=== PATIENT | male | born 2000 | race Caucasian/White ===

== ENCOUNTER 2022-04-10 20:14 | Inpatient (IN) | payer BC ==
[2022-04-10 21:25] LABS: Amphetamine Screen,Urine Not Detected (NotDetected); Barbiturate Screen,Urine Not Detected (NotDetected); Benzodiazepines Screen,Urine Not Detected (NotDetected); Cocaine Screen,Urine Not Detected (NotDetected); Methadone Screen, Urine Not Detected (NotDetected); Opiate Screen,Urine Not Detected (NotDetected); Oxycodone Screen, Urine Not Detected (NotDetected); Phencyclidine Screen,Urine Not Detected (NotDetected); Tricyclic Antidepressant,Urine Not Detected (NotDetected); Urn Cannabinoid Scrn Not Detected (NotDetected)
--- NOTE | 2022-04-10 21:32 | ED ---
Psych HPI - General Chief Complaint: Psychiatric Symptoms Stated Complaint: Mental Health Time Seen by Provider: 04/10/22 21:23 Source: patient, RN notes reviewed, old records reviewed Mode of arrival: ambulatory - History of Present Illness Initial Comments: This is a 21-year-old male with history of depression and psychiatric illness and depression. Patient admits to wanting to kill himself. MD Complaint: suicidal ideation, feels depressed -: unknown Associated Psychiatric Symptoms: depression, suicidal ideation History of same: Yes Quality: constant, getting worse Improves With: none Worsens With: none Context: significant life stressor Associated Symptoms: denies other symptoms Treatments Prior to Arrival: placed on mental health hold If Self Harm: has plan, intentional overdose - Related Data Home Medications Medication Instructions Recorded Confirmed No Known Home Medications 04/10/22 04/10/22 Allergies Allergy/AdvReac Type Severity Reaction Status Date / Time No Known Allergies Allergy Verified 04/10/22 22:20 Review of Systems ROS Statement: Those systems with pertinent positive or pertinent negative responses have been documented in the HPI. ROS Other: All systems not noted in ROS Statement are negative. Past Medical History Past Medical History: No Reported History Additional Past Medical History / Comment(s): wisdom teeth History of Any Multi-Drug Resistant Organisms: None Reported Past Surgical History: No Surgical Hx Reported Past Psychological History: ADD/ADHD Smoking Status: Never smoker Past Alcohol Use History: None Reported Past Drug Use History: None Reported General Exam General appearance: alert, in no apparent distress, anxious Head exam: Present: atraumatic, normocephalic, normal inspection Eye exam: Present: normal appearance, PERRL, EOMI. Absent: scleral icterus, conjunctival injection, periorbital swelling ENT exam: Present: normal exam, mucous membranes moist Neck exam: Present: normal inspection. Absent: tenderness, meningismus, lymphadenopathy Respiratory exam: Present: normal lung sounds bilaterally. Absent: respiratory distress, wheezes, rales, rhonchi, stridor Cardiovascular Exam: Present: regular rate, normal rhythm, normal heart sounds. Absent: systolic murmur, diastolic murmur, rubs, gallop, clicks GI/Abdominal exam: Present: soft, normal bowel sounds. Absent: distended, tenderness, guarding, rebound, rigid Extremities exam: Present: normal inspection, full ROM, normal capillary refill. Absent: tenderness, pedal edema, joint swelling, calf tenderness Back exam: Present: normal inspection Neurological exam: Present: alert, oriented X3, CN II-XII intact Psychiatric exam: Present: normal affect, normal mood Skin exam: Present: warm, dry, intact, normal color. Absent: rash Course Vital Signs 04/10/22 20:24 Temperature 98.2 F Pulse Rate 102 H Respiratory 22 Rate Blood Pressure 120/79 O2 Sat by Pulse 99 Oximetry - Reevaluation(s) Reevaluation #1: 04/10/22 21:32 medical record is reviewed Reevaluation #2: 04/10/22 21:32 medically clear for psych Medical Decision Making - Medical Decision Making 21 male seen and evaluated by psychiatry will admit for psychiatric evaluation and treatment - Lab Data Lab Results 04/10/22 Range/Units 20:42 Urine Opiates Screen Not Detected (NotDetected) Ur Oxycodone Screen Not Detected (NotDetected) Urine Methadone Screen Not Detected (NotDetected) Ur Propoxyphene Screen Not Detected (NotDetected) Ur Barbiturates Screen Not Detected (NotDetected) U Tricyclic Antidepress Not Detected (NotDetected) Ur Phencyclidine Scrn Not Detected (NotDetected) Ur Amphetamines Screen Not Detected (NotDetected) U Methamphetamines Scrn Not Detected (NotDetected) U Benzodiazepines Scrn Not Detected (NotDetected) Urine Cocaine Screen Not Detected (NotDetected) U Marijuana (THC) Screen Not Detected (NotDetected) Disposition Clinical Impression: Depression, Suicidal ideation Disposition: TRANSFER TO PSYCH HOSP/UNIT Condition: Fair Is patient prescribed a controlled substance at d/c from ED?: No Referrals: Damon Spaulding MD [Primary Care Provider] - 1-2 days
[2022-04-11] MEDS ORDERED: ACETAMINOPHEN TAB 325 MG TAB PO PRN (06:22)
[2022-04-11] MEDS ORDERED: MAG HYDROX/AL HYDROX/SIMETH 30 ML CUP PO PRN (06:22)
[2022-04-11] MEDS ORDERED: MAGNESIUM HYDROXIDE 2,400 MG/10 ML CUP PO PRN (06:22)
[2022-04-11] MEDS ORDERED: HALOPERIDOL LACTATE 5 MG/ML 1 ML VIAL IM PRN (06:23)
[2022-04-11] MEDS ORDERED: LORazepam 1 MG TAB PO PRN ×2 (06:23→10:36)
[2022-04-11] MEDS ORDERED: LORazepam 2 MG/ML INJ IM PRN (06:27)
[2022-04-11] MEDS ORDERED: haloperidoL 5 MG TAB PO PRN (06:28)
[2022-04-11 07:42] LABS: Basophils % (A) 1 %; Eosinophils # (A) 0.2 k/uL (0-0.7); Eosinophils % (A) 3 %; HCT 47.5 % (39.0-53.0); HGB 16.1 gm/dL (13.0-17.5); Lymphocytes # (A) 1.5 k/uL (1.0-4.8); Lymphocytes % (A) 31 %; MCH 31.7 pg (25.0-35.0); MCV 93.2 fL (80.0-100.0); Mean Platelet Volume 7.6; Monocytes # (A) 0.3 k/uL (0-1.0); Monocytes % (A) 6 %; Neutrophils # (A) 2.8 k/uL (1.3-7.7); Neutrophils % (A) 57 %; Platelet Count 234 k/uL (150-450); RDW 12.6 % (11.5-15.5); WBC 4.8 k/uL (4.0-11.0)
[2022-04-11 08:03] LABS: ALT 15 U/L (4-49); AST 40 U/L (17-59); African American GFR (CKD) >90 (>60 ml/min/1.73 sqM); Albumin 5.1 g/dL (3.5-5.0); Alkaline Phosphatase 54 U/L (38-126); Anion Gap 10 mmol/L; Blood Urea Nitrogen 15 mg/dL (9-20); Calcium 9.7 mg/dL (8.4-10.2); Carbon Dioxide 28 mmol/L (22-30); Chloride 102 mmol/L (98-107); Glucose 94 mg/dL (74-99); Non-African American GFR(CKD) >90 (>60 ml/min/1.73 sqM); Potassium 4.5 mmol/L (3.5-5.1); Sodium 140 mmol/L (137-145); Total Bilirubin 0.9 mg/dL (0.2-1.3); Total Protein 8.3 g/dL (6.3-8.2)
--- NOTE | 2022-04-11 11:07 | P.HP ---
Psychiatric H&P - . H&P Date: 04/11/22 History & Physical: Allergies Allergy/AdvReac Type Severity Reaction Status Date / Time No Known Allergies Allergy Verified 04/10/22 22:20 Vital Signs Temp 97.4 F L 04/11/22 06:30 Pulse 89 04/11/22 06:30 Resp 18 04/11/22 06:30 BP 126/69 04/11/22 06:30 Pulse Ox 96 04/11/22 06:30 FiO2 Intake & Output 04/10/22 04/11/22 04/11/22 18:59 06:59 18:59 Weight 65.9 kg Laboratory Last Values WBC 4.8 k/uL (4.0-11.0) 04/11/22 07:10 RBC 5.10 m/uL (4.30-5.90) 04/11/22 07:10 Hgb 16.1 gm/dL (13.0-17.5) 04/11/22 07:10 Hct 47.5 % (39.0-53.0) 04/11/22 07:10 MCV 93.2 fL (80.0-100.0) 04/11/22 07:10 MCH 31.7 pg (25.0-35.0) 04/11/22 07:10 MCHC 34.0 g/dL (31.0-37.0) 04/11/22 07:10 RDW 12.6 % (11.5-15.5) 04/11/22 07:10 Plt Count 234 k/uL (150-450) 04/11/22 07:10 MPV 7.6 04/11/22 07:10 Neutrophils % 57 % 04/11/22 07:10 Lymphocytes % 31 % 04/11/22 07:10 Monocytes % 6 % 04/11/22 07:10 Eosinophils % 3 % 04/11/22 07:10 Basophils % 1 % 04/11/22 07:10 Neutrophils # 2.8 k/uL (1.3-7.7) 04/11/22 07:10 Lymphocytes # 1.5 k/uL (1.0-4.8) 04/11/22 07:10 Monocytes # 0.3 k/uL (0-1.0) 04/11/22 07:10 Eosinophils # 0.2 k/uL (0-0.7) 04/11/22 07:10 Basophils # 0.0 k/uL (0-0.2) 04/11/22 07:10 Sodium 140 mmol/L (137-145) 04/11/22 07:10 Potassium 4.5 mmol/L (3.5-5.1) 04/11/22 07:10 Chloride 102 mmol/L (98-107) 04/11/22 07:10 Carbon Dioxide 28 mmol/L (22-30) 04/11/22 07:10 Anion Gap 10 mmol/L 04/11/22 07:10 BUN 15 mg/dL (9-20) 04/11/22 07:10 Creatinine 0.94 mg/dL (0.66-1.25) 04/11/22 07:10 Est GFR (CKD-EPI)AfAm >90 (>60 ml/min/1.73 sqM) 04/11/22 07:10 Est GFR (CKD-EPI)NonAf >90 (>60 ml/min/1.73 sqM) 04/11/22 07:10 Glucose 94 mg/dL (74-99) 04/11/22 07:10 Calcium 9.7 mg/dL (8.4-10.2) 04/11/22 07:10 Total Bilirubin 0.9 mg/dL (0.2-1.3) 04/11/22 07:10 AST 40 U/L (17-59) 04/11/22 07:10 ALT 15 U/L (4-49) 04/11/22 07:10 Alkaline Phosphatase 54 U/L (38-126) 04/11/22 07:10 Total Protein 8.3 g/dL (6.3-8.2) H 04/11/22 07:10 Albumin 5.1 g/dL (3.5-5.0) H 04/11/22 07:10 TSH 1.990 mIU/L (0.465-4.680) 04/11/22 07:10 Urine Opiates Screen Not Detected (NotDetected) 04/10/22 20:42 Ur Oxycodone Screen Not Detected (NotDetected) 04/10/22 20:42 Urine Methadone Screen Not Detected (NotDetected) 04/10/22 20:42 Ur Propoxyphene Screen Not Detected (NotDetected) 04/10/22 20:42 Ur Barbiturates Screen Not Detected (NotDetected) 04/10/22 20:42 U Tricyclic Antidepress Not Detected (NotDetected) 04/10/22 20:42 Ur Phencyclidine Scrn Not Detected (NotDetected) 04/10/22 20:42 Ur Amphetamines Screen Not Detected (NotDetected) 04/10/22 20:42 U Methamphetamines Scrn Not Detected (NotDetected) 04/10/22 20:42 U Benzodiazepines Scrn Not Detected (NotDetected) 04/10/22 20:42 Urine Cocaine Screen Not Detected (NotDetected) 04/10/22 20:42 U Marijuana (THC) Screen Not Detected (NotDetected) 04/10/22 20:42 Coronavirus (PCR) Not Detected (Not Detectd) 04/11/22 04:23 04/11/22 10:41 IDENTIFYING DATA: Patient is a 21-year-old male who currently lives with his parents in a house is single and unmarried. He currently works in a [employer] HPI: Patient presented to the hospital yesterday complaining of depression and suicidal ideation. Patient was admitted voluntarily to mental health unit and seen this morning. Patient was fairly calm and directable during conversation was rambling at times. He did have a anxious affect. He states that he is a "anxious person" and states that he has been "over thinking". He claims that it is especially related to his relationship with his girlfriend. He states that he has been having racing and negative thoughts about their relationship and their interaction together. He states that he has been feeling depressed for the past 2 weeks and has been having trouble functioning. He also describes hopelessness and anhedonia. He states that he has anxiety has been increasing over the past several weeks. He claims that he has had suicidal ideations in the past however it has become more intense and had a plan to possibly kill himself with carbon monoxide in his car. He states that instead he called a suicide hotline and went to the hospital. He states that he is having significant relationship stressors. He states that he is oversleeping and has a fair appetite. Patient denies any suicidal or homicidal ideations intent or plan. At this time patient denies any auditory or visual hallucinations. He admits to using no recreational drugs or cigarettes. PAST PSYCHIATRIC HISTORY: Patient states that he has a history of anxiety. Patient denies being on any psychiatric medications. Patient denies any previous psychiatric hospitalizations. Patient denies any psychiatric outpatient follow- up. He claims that he is to follow-up with [facility] in the past however has not been on medications. Patient denies any history of suicide attempts in the past. PMH:denies ALLERGIES: as per EMR CHEMICAL DEPENDENCY HISTORY: as per HPI FAMILY PSYCHIATRIC/SUBSTANCE USE HISTORY: denies SOCIAL HISTORY: Patient was born and raised in [facility]. He states that he completed high school and is in his second year of college at [employer]. 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 He denies any legal history. He currently lives with his parents in a house is single and unmarried. MENTAL STATUS EXAM: General Appearance: Patient appears to be tall, thin, stated age is alert, directable, and attempts to cooperate. Patient appears to have poor hygiene and grooming. Behavior: Patient is seated without any agitated behavior. Anxious and rambles Speech: Patient's speech is fluent and nonpressured. Tangential. Mood/Affect: Patient reports their mood is depressed and anxious, affect is congruent and constricted. Suicidality/Homicidality: Patient denies having any homicidal ideation intent or plan. Denies any suicidal ideations intent or plan Perceptions: Patient denies any visual hallucinations and denies any auditory hallucinations Though content/process: There is no evidence of any delusional thought content. Rambles. Tangential. Memory and concentration: AOX3, grossly intact for the purposes of this session. Can spell "WORLD" backwards Judgment and insight: Fair STRENGTHS/WEAKNESSES: strength is that patient is resilient. Weakness is that patient has poor judgment and is impulsive INTELLECT: average IMPRESSIONS: Depressive disorder unspecified Generalized anxiety disorder PLAN: -Patient is admitted under voluntary status to MHU for stabilization of psychiatric symptoms and safety. Patient has signed adult voluntary form and medication consent and is placed in patient's chart. -Medications : Will start patient on Zoloft 50 mg daily for mood/anxiety, melatonin 3 mg daily at bedtime for sleep -Ativan and Haldol PRN for agitation/aggression -Patient was informed of the risks, benefits and side effects of the medication and patient verbally consented to taking the medications. Patient signed med consent form and was placed in chart. -Internal Medicine consult to perform medical evaluation and physical. -NRT - not needed as patient does not smoke -SW on board for discharge planning. Encourage patient to participate in groups to work on coping skills. 04/11/22 11:02
[2022-04-11] MEDS: SERTRALINE 50 MG TAB PO SCH (11:18)
--- NOTE | 2022-04-11 12:30 | P.MDCNMH ---
History of Present Illness H&P Date: 04/11/22 HISTORY OF PRESENT ILLNESS This is a 21-year-old male patient of Dr. Spaulding with no significant past medical history. He has not been on any mediations and no previous psychiatric evaluation. He states that he has had suicidal ideation and thought he needed professional help. He talked to hi mother and made decision to come into the hospital for evaluation. He also states that he has had periods where he had suicidal ideation in the past but has never acted on it. He does relate that he has had some increased anxiety regarding her relationship with girlfriend. Patient was found to be afebrile, heart rate 102, blood pressure 120/79, pulse ox 99% on room air. CBC was unremarkable. Electrolytes, renal function and liver function tests all within normal limits. Albumin 5.1. TSH 1.990. Urine drug screen was negative. Coronavirus PCR not detected. Patient is seen today on the mental health unit. REVIEW OF SYSTEMS Constitutional: No fever, no chills, no night sweats. No weight change. No weakness, fatigue or lethargy. No daytime sleepiness. EENT: No headache. No blurred vision or double vision, no loss of vision. No loss of Hearing, no ringing in the ears, no dizziness. No nasal drainage or congestion. No epistaxis. No sore throat. Lungs: No shortness of breath, cough, no sputum production. No wheezing. Cardiovascular: No chest pain, no lower extremity edema. No palpitations. No paroxysmal nocturnal dyspnea. No orthopnea. No lightheadedness or dizziness. No syncopal episodes. Abdominal: No abdominal pain. No nausea, vomiting. No diarrhea. No constipation. No bloody or tarry stools. No loss of appetite. Genitourinary: No dysuria, increased frequency, urgency. No urinary retention. Musculoskeletal: No myalgias. No muscle weakness, no gait dysfunction, no frequent falls. No back pain. No neck pain. Integumentary: No wounds, no lesions. No rash or pruritus. No unusual bruising. No change in hair or nails. Neurologic: No aphasia. No facial droop. No change in mentation. No head injury. No headache. No paralysis. No paresthesia. Psychiatric: Reports depression with suicidal ideation. Reports anxiety. No mood swings. Endocrine: No abnormal blood sugars. No weight change. No excessive sweating or thirst. No cold intolerance. SOCIAL HISTORY Patient is a nonsmoker, no alchol use, no marijuana or illicit drug use. 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 Father is alive with history of bipolar disorder and depression. He does not have any siblings and no children. PHYSICAL EXAMINATION Gen: This is his a 21-year-old male patient. He is ambulating on the mental health unit and appears to be in no acute distress. HEENT: Head is atraumatic, normocephalic. Pupils equal, round. Sclerae is anicteric. NECK: Supple. No JVD. No lymphadenopathy. No thyromegaly. LUNGS: Clear to auscultation. No wheezes or rhonchi. No intercostal retractions. HEART: Regular rate and rhythm. No murmur. ABDOMEN: Soft. Bowel sounds are present. No masses. No tenderness. EXTREMITIES: No pedal edema. No calf tenderness. NEUROLOGICAL: Patient is awake, alert and oriented x3. Cranial nerves 2 through 12 are grossly intact. ASSESSMENT AND PLAN 1. Depression with suicidal ideation. Patient admitted to the MHU. Continue plan per psychiatry. 2. Generalized anxiety disorder. DISCHARGE PLAN home. Impression and plan of care have been directed as dictated by the signing p haydensicigely. Katelynn Payton nurse practitioner acting as scribe for signing physician. Past Medical History Past Medical History: No Reported History Additional Past Medical History / Comment(s): wisdom teeth History of Any Multi-Drug Resistant Organisms: None Reported Past Surgical History: No Surgical Hx Reported Past Psychological History: ADD/ADHD Smoking Status: Never smoker Past Alcohol Use History: None Reported Past Drug Use History: None Reported Medications and Allergies Home Medications Medication Instructions Recorded Confirmed Type No Known Home Medications 04/10/22 04/10/22 History Allergies Allergy/AdvReac Type Severity Reaction Status Date / Time No Known Allergies Allergy Verified 04/10/22 22:20 Physical Exam Vitals: Vital Signs Temp Pulse Pulse Resp BP BP Pulse Ox 04/11/22 06:30 97.4 F L 89 18 126/69 96 04/11/22 06:23 96 96/69 98 04/10/22 20:24 98.2 F 102 H 22 120/79 99 Intake and Output 04/10/22 04/11/22 04/11/22 22:59 06:59 14:59 Other: Weight 68.039 kg 65.9 kg Cranial Nerve Examination - Cranial Nerves Cranial Nerve I- Olfactory: Intact Cranial Nerve II- Optic: Intact Cranial Nerve III- Oculomotor: Intact Cranial Nerve IV- Trochlear: Intact Cranial Nerve V- Trigeminal: Intact Cranial Nerve - Abducens: Intact Cranial Nerve VII- Facial: Intact Cranial Nerve VIII- Auditory: Intact Cranial Nerve IX- Glossopharyngeal: Intact Cranial Nerve X- Vagus: Intact Cranial Nerve XI- Accessory: Intact Cranial Nerve XII- Hypoglossal: Intact Results CBC & Chem 7: 04/11/22 07:10 04/11/22 07:10 Labs: Abnormal Lab Results - Last 24 Hours (Table) 04/11/22 Range/Units 07:10 Total Protein 8.3 H (6.3-8.2) g/dL Albumin 5.1 H (3.5-5.0) g/dL
[2022-04-11] MEDS: MELATONIN 3 MG TABLET PO SCH (20:48)
[2022-04-12] MEDS: SERTRALINE 50 MG TAB PO SCH (09:04)
--- NOTE | 2022-04-12 11:09 | P.PN ---
Progress Note - Text Progress Note Date: 04/12/22 Interval History: Patient was seen wandering the hallways and was directable and agreeable to nora wright with repairer typewriter in the office. Patient continues to be fairly polite and directable during conversation. He rambles at times however states that he is doing overall much better on the medications. He states that his anxiety is gradually improving however does find himself "having racing thoughts still" at times during the day. He states that he is trying to work on different coping skills" groups. He states that he spoke to both his girlfriend and his parents over the phone yesterday which went well. He claims that his parents will come to visit him today for visiting hours. He was asking about potential discharge tomorrow. He claims that his depression is improving. He claims that he is able to sleep throughout the night. At this time patient denies any suicidal or homical ideations, intent or plan. Patient denies any auditory, visual hallucinations and denies any paranoia or delusions. Patient denies any side effects from the medications and has been compliant with meds. Mental Status Exam: General Appearance: Patient appears to be tall, thin, stated age is alert, directable, and attempts to cooperate. Patient appears to have improving hygiene and grooming. Behavior: Patient is seated without any agitated behavior. rambles Speech: Patient's speech is fluent and nonpressured. Mood/Affect: Patient reports their mood is depressed and anxious, affect is congruent and constricted. Suicidality/Homicidality: Patient denies having any homicidal ideation intent or plan. Denies any suicidal ideations intent or plan Perceptions: Patient denies any visual hallucinations and denies any auditory hallucinations Though content/process: There is no evidence of any delusional thought content. Rambles. Improving Memory and concentration: AOX3, grossly intact for the purposes of this session Judgment and insight: Fair IMPRESSIONS: Depressive disorder unspecified Generalized anxiety disorder Plan: -Patient continues to meet criteria for inpatient psychiatric admission for symptom stabilization and safety. Patient has signed adult voluntary form and medication consent and was placed in patient's chart. -Medications: Increase Zoloft to 75 mg daily for mood/anxiety, melatonin 3 mg daily at bedtime for sleep. -When necessary Ativan and Haldol for agitation/aggression. -NRT - not needed as patient does not smoke -SW on board for discharge planning. Encouraged the patient to participate in milieu. likely discharge back home tomorrow.
[2022-04-12] MEDS: MELATONIN 3 MG TABLET PO SCH (20:35)
[2022-04-13 06:37] VITALS: BP 104/53; PULSE 53; RESP 16; TEMP 97.6
[2022-04-13] MEDS ORDERED: SERTRALINE 25 MG TAB PO SCH (09:00)
--- NOTE | 2022-04-13 11:08 | P.DS ---
Providers Date of admission: 04/11/22 06:19 Expected date of discharge: 04/13/22 Attending physician: Primo Jules MD Consults: 04/11/22 06:22 Consult Physician Routine Consulting Provider: Damon Spaulding Reason/Comments: H&P for mental health admission Do you want consulting provider notified?: Yes, Notify in am Primary care physician: Damon Spaulding - Discharge Diagnosis(es) (1) Depressive disorder Current Visit: Yes Status: Acute Priority: High (2) Generalized anxiety disorder Current Visit: Yes Status: Acute Priority: High Hospital Course: Admission HPI: Admission note was completed by web content writer "Patient is a 21-year-old male who currently lives with his parents in a house is single and unmarried. He currently works in a warehouse. Patient presented to the hospital yesterday complaining of depression and suicidal ideation. Patient was admitted voluntarily to mental health unit and seen this morning. Patient was fairly calm and directable during conversation was rambling at times. He did have a anxious affect. He states that he is a "anxious person" and states that he has been "over thinking". He claims that it is especially related to his relationship with his girlfriend. He states that he has been having racing and negative thoughts about their relationship and their interaction together. He states that he has been feeling depressed for the past 2 weeks and has been having trouble functioning. He also describes hopelessness and anhedonia. He states that he has anxiety has been increasing over the past several weeks. He claims that he has had suicidal ideations in the past however it has become more intense and had a plan to possibly kill himself with carbon monoxide in his car. He states that instead he called a suicide hotline and went to the hospital. He states that he is having significant relationship stressors. He states that he is oversleeping and has a fair appetite. Patient denies any suicidal or homicidal ideations intent or plan. At this time patient denies any auditory or visual hallucinations. He admits to using no recreational drugs or cigarettes" Hospital course: Upon admission to the unit patient was directable and agreeable to commence treatment and signed adult voluntary form. Patient got along well with other patients on the unit and followed unit protocol. Patient was compliant with the medications and denied any side effects throughout hospital course. Patient was started on Zoloft increased her dose to 75 mg daily for mood/anxiety, melatonin 3 mg daily at bedtime for sleep.. Patient spoke of his stressors and engaged in therapy both group and individual. Patient was also seen by medical team for history and physical exam. Throughout the course of the hospitalization patient gradually improved with regards to mood, anxiety, sleep and became more future oriented with improved insight and judgment. On the day of discharge patient denied any suicidal or homicidal ideations intent or plan denied any auditory or visual hallucinations. Patient endorsed wanting to live for his health and family. The patient denied any access to guns or weapons. Patient denied any paranoia and did not endorse any delusions. Patient does not have a significant history of substance abuse however was counseled on abstaining from all substances including alcohol and marijuana. Patient was also counseled on the medications and need for regular compliance and was encouraged to follow-up with their outpatient appointment for mental health and also for primary care. Prior to discharge a family meeting will be arranged by social media job [employer] to answer any questions and ensure safety upon discharge. Mental status exam: General Appearance: Patient appears to be thin, stated age is alert, pleasant, and cooperative. Patient is in no acute distress and has improved hygiene and grooming Behavior: Patient is calmly seated without any agitated behavior. Speech: Patient's speech is fluent and nonpressured. Mood/Affect: Patient reports their mood is "better", affect is congruent and euthymic. Suicidality/Homicidality: Patient denies having any suicidal or homicidal ideation intent or plan. Perceptions: Patient denies any auditory or visual hallucinations. Though content/process: There is no evidence of any delusional thought content and thought process is linear and goal-directed. more future oriented Memory and concentration: AOX3, grossly intact for the purposes of this session. Can spell "WORLD" backwards correctly. Judgment and insight: improved with guarded prognosis Impression: Depressive disorder unspecified Generalized anxiety disorder Plan: -Continue with discharge today as patient has improved and stabilized psychiatrically and is not currently an imminent threat to himself and/or others. -Continue medications: Zoloft 75 mg daily for mood/anxiety. Melatonin 3 mg daily at bedtime for sleep. -Patient was counseled on the need for medication compliance and appropriate follow-up at mental health and also primary care for medical issues. Patient verbalized understanding and agreed. -Social work to arrange for and conduct family meeting to ensure safety upon discharge and answer any questions/concerns. Social work also to arrange for patients follow up appointments with [facility] for psychiatric care along with follow up with primary care provider. -Patient counseled on abstaining from recreational drugs and marijuana and alcohol. Was informed/educated on the adverse effects on their physical and mental health. Patient verbally agreed and understood. -Patient was instructed to return to the hospital or seek immediate medical care if their psychiatric or medical symptoms do worsen or reoccur. Allergies Allergy/AdvReac Type Severity Reaction Status Date / Time No Known Allergies Allergy Verified 04/10/22 22:20 Laboratory Results WBC 4.8 k/uL (4.0-11.0) 04/11/22 07:10 RBC 5.10 m/uL (4.30-5.90) 04/11/22 07:10 Hgb 16.1 gm/dL (13.0-17.5) 04/11/22 07:10 Hct 47.5 % (39.0-53.0) 04/11/22 07:10 MCV 93.2 fL (80.0-100.0) 04/11/22 07:10 MCH 31.7 pg (25.0-35.0) 04/11/22 07:10 MCHC 34.0 g/dL (31.0-37.0) 04/11/22 07:10 RDW 12.6 % (11.5-15.5) 04/11/22 07:10 Plt Count 234 k/uL (150-450) 04/11/22 07:10 MPV 7.6 04/11/22 07:10 Neutrophils % 57 % 04/11/22 07:10 Lymphocytes % 31 % 04/11/22 07:10 Monocytes % 6 % 04/11/22 07:10 Eosinophils % 3 % 04/11/22 07:10 Basophils % 1 % 04/11/22 07:10 Neutrophils # 2.8 k/uL (1.3-7.7) 04/11/22 07:10 Lymphocytes # 1.5 k/uL (1.0-4.8) 04/11/22 07:10 Monocytes # 0.3 k/uL (0-1.0) 04/11/22 07:10 Eosinophils # 0.2 k/uL (0-0.7) 04/11/22 07:10 Basophils # 0.0 k/uL (0-0.2) 04/11/22 07:10 Sodium 140 mmol/L (137-145) 04/11/22 07:10 Potassium 4.5 mmol/L (3.5-5.1) 04/11/22 07:10 Chloride 102 mmol/L (98-107) 04/11/22 07:10 Carbon Dioxide 28 mmol/L (22-30) 04/11/22 07:10 Anion Gap 10 mmol/L 04/11/22 07:10 BUN 15 mg/dL (9-20) 04/11/22 07:10 Creatinine 0.94 mg/dL (0.66-1.25) 04/11/22 07:10 Est GFR (CKD-EPI)AfAm >90 (>60 ml/min/1.73 sqM) 04/11/22 07:10 Est GFR (CKD-EPI)NonAf >90 (>60 ml/min/1.73 sqM) 04/11/22 07:10 Glucose 94 mg/dL (74-99) 04/11/22 07:10 Calcium 9.7 mg/dL (8.4-10.2) 04/11/22 07:10 Total Bilirubin 0.9 mg/dL (0.2-1.3) 04/11/22 07:10 AST 40 U/L (17-59) 04/11/22 07:10 ALT 15 U/L (4-49) 04/11/22 07:10 Alkaline Phosphatase 54 U/L (38-126) 04/11/22 07:10 Total Protein 8.3 g/dL (6.3-8.2) H 04/11/22 07:10 Albumin 5.1 g/dL (3.5-5.0) H 04/11/22 07:10 TSH 1.990 mIU/L (0.465-4.680) 04/11/22 07:10 Urine Opiates Screen Not Detected (NotDetected) 04/10/22 20:42 Ur Oxycodone Screen Not Detected (NotDetected) 04/10/22 20:42 Urine Methadone Screen Not Detected (NotDetected) 04/10/22 20:42 Ur Propoxyphene Screen Not Detected (NotDetected) 04/10/22 20:42 Ur Barbiturates Screen Not Detected (NotDetected) 04/10/22 20:42 U Tricyclic Antidepress Not Detected (NotDetected) 04/10/22 20:42 Ur Phencyclidine Scrn Not Detected (NotDetected) 04/10/22 20:42 Ur Amphetamines Screen Not Detected (NotDetected) 04/10/22 20:42 U Methamphetamines Scrn Not Detected (NotDetected) 04/10/22 20:42 U Benzodiazepines Scrn Not Detected (NotDetected) 04/10/22 20:42 Urine Cocaine Screen Not Detected (NotDetected) 04/10/22 20:42 U Marijuana (THC) Screen Not Detected (NotDetected) 04/10/22 20:42 Coronavirus (PCR) Not Detected (Not Detectd) 04/11/22 04:23 Vital Signs Temp 97.6 F 04/13/22 06:36 Pulse 53 L 04/13/22 06:36 Resp 16 04/13/22 06:36 BP 104/53 04/13/22 06:36 Pulse Ox 98 04/13/22 06:36 FiO2 Patient Condition at Discharge: Stable Plan - Discharge Summary Discharge Rx Participant: No New Discharge Prescriptions: New Melatonin 3 mg PO HS 30 Days tab Sertraline [Zoloft] 75 mg PO DAILY 30 Days tab Discharge Medication List Melatonin 3 mg PO HS 30 Days tab 04/13/22 [Rx] Sertraline [Zoloft] 75 mg PO DAILY 30 Days tab 04/13/22 [Rx] Follow up Appointment(s)/Referral(s): [facility] - 04/20/22 5:00 pm (04/20/2022 @ 5:00 PM with Toni.) Damon Spaulding MD [Primary Care Provider] - 1-2 days Activity/Diet/Wound Care/Special Instructions: Activity and diet as tolerated. Avoid the use of street drugs and alcohol. Take all medications as prescribed. When you are in need of refills on your medications please contact your medical provider and/or outpatient psychiatrist to have this done. Please go to scheduled outpatient appointment for aftercare treatment. If symptoms return or become worse, call the crisis line at and/or go to the nearest emergency room for evaluation Discharge Disposition: HOME SELF-CARE
== END 2022-04-13 14:37 | disposition home or self-care (01) | DRG 881 ==
LOC: EC 20:14 → 3MHU 04-11 06:19
PROVIDERS: ADMIT Psychiatry & Neurology Psychiatry; ATTEND Psychiatry & Neurology Psychiatry
DX: F32.A Depression, unspecified (principal); R45.851 Suicidal ideations; F41.1 Generalized anxiety disorder; Z79.899 Other long term (current) drug therapy; Z20.822 Contact with and (suspected) exposure to COVID-19; F90.9 Attention-deficit hyperactivity disorder, unspecified type; R45.1 Restlessness and agitation; Z98.890 Other specified postprocedural states; Z81.8 Family history of other mental and behavioral disorders
CPT/HCPCS: 80053; 80306; 84443; 85025; 87635; 99285